=== PATIENT | female | born 1960 | race Caucasian/White ===

== ENCOUNTER 2019-12-11 03:56 | Inpatient (IN) | payer BC, OTHER ==
[2019-12-11 04:09] VITALS: BMI 21.3
--- NOTE | 2019-12-11 04:18 | PDOC ---
Attending Attestation - Resident Resident Name: Regino Abrams - ED Attending Attestation I have performed the following: I have examined & evaluated the patient, The case was reviewed & discussed with the resident, I agree w/resident's findings & plan - HPI HPI: 12/11/19 05:50 see resident hpi - Physicial Exam PE: 12/11/19 05:50 see resident exam - Medical Decision Making 12/11/19 05:50 59-year-old female with epigastric pain nausea and vomiting Plan for labs including lipase and troponin EKG does show some T wave inversions in anterior leads Pending results plan for observation for further evaluation
[2019-12-11] MEDS ORDERED: SODIUM CHLORIDE 0.9% 500 ML INFUS.BAG IV ONE (04:41)
[2019-12-11] MEDS ORDERED: ACETAMINOPHEN 1000 MG/100 ML VIAL (NON FORMULARY) IVPB ONE (04:41)
--- NOTE | 2019-12-11 04:46 | PDOC ---
History of Present Illness - General Chief Complaint: Weakness Stated Complaint: FEVER,DIZZINESS,NAUSEA,WEAKNESS Time Seen by Provider: 12/11/19 04:14 History Source: Patient - History of Present Illness Initial Comments: 59F PMH HTN HLD c/o dizziness (room spinning, starting around midnight) in setting of F/N/V and poor PO intake x 3 days. Has only been able to tolerate small amounts of yogurt w/ daily meds. Denies sick contacts; recent abx. Last BM tuesday; has been passing flatus. Denies cp/sob. +travel to 2 weeks ago, no sick contacts there or illnesses during or immediately after trip. PCP - Dr. Espinoza Past History - Past Medical History Allergies/Adverse Reactions: Allergies Allergy/AdvReac Type Severity Reaction Status Date / Time No Known Drug Allergies Allergy Verified 12/11/19 04:03 Home Medications: Ambulatory Orders Atenolol [Tenormin -] 50 mg PO DAILY 03/26/15 Amlodipine Besylate [Norvasc -] 10 mg PO DAILY 03/27/15 Simvastatin [Zocor -] 20 mg PO DAILY 03/27/15 Meclizine HCl 25 mg PO Q8H #30 tablet 12/11/19 Pantoprazole Sodium [Protonix] 40 mg PO DAILY #14 tablet. 12/11/19 Anemia: Yes Asthma: No Cancer: No Cardiac Disorders: No CVA: No COPD: No CHF: No Dementia: No Diabetes: No GI Disorders: No Disorders: No HTN: Yes Hypercholesterolemia: Yes Liver Disease: No Seizures: No Thyroid Disease: No - Surgical History Abdominal Surgery: Yes (TUMMY TUCK) Appendectomy: Yes Cardiac Surgery: No Cholecystectomy: No Lung Surgery: No Neurologic Surgery: No Orthopedic Surgery: No - Psycho Social/Smoking Cessation Hx Smoking History: Never smoked Have you smoked in the past 12 months: Yes Number of Cigarettes Smoked Daily: 2 'Breaking Loose' booklet given: 03/27/15 Hx Alcohol Use: No Drug/Substance Use Hx: No Substance Use Type: None Hx Substance Use Treatment: No Review of Systems - Review of Systems Able to Perform ROS?: Yes Comments:: CONSTITUTIONAL: endorses subjective fevers HEENT: endorses dizziness. Denies changes in vision / hearing RESP: Denies SOB, cough, orthopnea, NUNEZ CARD: Denies chest pain, palpitations GI: endorses n/v/d, po intolerance. : Denies dysuria SKIN: Denies rashes NEURO: Denies numbness, tingling, focal weakness MSK: Denies back pain *Physical Exam - Vital Signs Last Vital Signs Temp Pulse Resp BP Pulse Ox 99.5 F 74 18 114/72 98 12/11/19 04:04 12/11/19 04:04 12/11/19 04:04 12/11/19 04:04 12/11/19 04:04 - Physical Exam GEN: uncomfortable; AAOx3. HEENT: NC/AT, CN II-XII intact, EOMI, PERRL. No facial asymmetry. Moist mucous membranes. Normal voice. Supple neck w/ FROM. CV: S1/S2, RRR, no m/r/g LUNG: CTAB, no wheezes, crackles, rales, rhonchi. GI: mild ttp epigastrium; soft, nondistended, otherwise nontender, +BS, no guarding, no rebound. No masses. MSK: No obvious deformities of all extremities. SKIN: Warm, dry, no rashes appreciated. PSYCH: Normal mood and affect. NEURO: Moving all extremities well. 5/5 UE LE strength b/l. symmetric sensation. rhomberg neg. no pronator drift. no ataxia on FTN. Heart Score/ECG Review - History History: Slightly suspicious - Electrocardiogram EKG: Non specific repolarization disturbance - Age Age: 45-65 - Risk Factors Risk Factors Heart Score: Yes Hx Hypercholesterolemia, Yes Hx Hypertension Based on the list above the patient has:: 1-2 risk factors - Troponin Troponin: </= normal limit - Score Heart Score - Total: 3 ED Treatment Course - LABORATORY CBC & Chemistry Diagram: 12/11/19 04:50 12/11/19 04:50 Medical Decision Making - Medical Decision Making 12/11/19 04:56 59F c/o dizziness in setting of F/N/V, poor PO intake. Mild midepigastric pain o /w unremarkable exam. - CBC, CMP, Cardiac - EKG - CXR - Zofran, Pepcid, Fluids EKG 0449 HR 64 IA 164 QRS 86 QTc 416 NSR; TWI V2-V4; normal axis. No prior EKGs in system to compare. 12/11/19 06:00 labs reviewed reassuring pt improving and resting comfortably teleobs 12/11/19 06:11 HEART = 3 Endorsed Admitted Discharge - Discharge Information Problems reviewed: Yes Clinical Impression/Diagnosis: Epigastric abdominal pain, Abnormal EKG Condition: Stable - Follow up/Referral - Patient Discharge Instructions - Post Discharge Activity
[2019-12-11] MEDS ORDERED: FAMOTIDINE 20 MG/50 ML IVPB 20 MG/50 ML MG IVPB ONE ×2 (05:00→05:06)
[2019-12-11] MEDS ORDERED: ONDANSETRON 4 MG/2 ML VIAL IVPUSH ONE (05:00)
[2019-12-11] MEDS ORDERED: ACETAMINOPHEN INJECTION 100 ML IVPB ONE (05:05)
[2019-12-11] MEDS ORDERED: ONDANSETRON 4 MG/2 ML VIAL ONE (05:06)
[2019-12-11 05:11] LABS: BASO % 0.5 % (0-2.0); EOS % 0.1 % (0-4.5); HEMOGLOBIN 13.6 GM/dL (10.7-15.3); LYMPH % 14.7 % (8-40); MCH 27.4 pg (25.7-33.7); MEAN CELL VOLUME 80.5 fl (80-96); MEAN PLT VOLUME 9.6 fl (7.5-11.1); MONO % 26.6 % (3.8-10.2); NEUT % 58.1 % (42.8-82.8); PLATELET COUNT 165 K/MM3 (134-434); RBC 4.97 M/mm3 (3.60-5.2); RDW 14.4 % (11.6-15.6); WHITE BLOOD COUNT 5.5 K/mm3 (4.0-10.0)
[2019-12-11 05:54] LABS: ALBUMIN 3.9 g/dl (3.4-5.0); ALK PHOS 104 U/L (45-117); ANION GAP 7 MMOL/L (8-16); BILIRUBIN,TOTAL 0.2 mg/dL (0.2-1); BLOOD UREA NITROGEN 12.5 mg/dL (7-18); CALCIUM 8.9 mg/dL (8.5-10.1); CHLORIDE 103 mmol/L (98-107); CO2 26 mmol/L (21-32); CREATININE 0.7 mg/dL (0.55-1.3); GLUCOSE,RANDOM 113 mg/dL (74-106); POTASSIUM 4.2 mmol/L (3.5-5.1); SGOT/AST 27 U/L (15-37); SGPT/ALT 32 U/L (13-61); SODIUM 136 mmol/L (136-145); TOT PROT 8.3 g/dl (6.4-8.2)
[2019-12-11 06:38] LABS: ANISOCYTOSIS 0; HELMET CELLS 0; HOWELL-JOLLY BODIES 0; MACROCYTOSIS 0; OVALOCYTE 0; PLATELET ESTIMATE NORMAL; ROULEAU 0; SICKELED CELLS 0; TARGET CELLS 0; TEAR DROP CELLS 0; TOXIC GRANULATION 0
[2019-12-11] MEDS ORDERED: MECLIZINE HCL 25 MG TABLET (FP) PO PRN (07:50)
[2019-12-11] MEDS ORDERED: SODIUM CHLORIDE 1,000 ML IV SCH (08:00)
[2019-12-11] MEDS ORDERED: ACETAMINOPHEN 325 MG TABLET (FP) PO PRN (08:12)
--- NOTE | 2019-12-11 08:14 | HP ---
CHIEF COMPLAINT:RUQ/epigastric pain PCP:Dr. Espinoza HISTORY OF PRESENT ILLNESS: Patient is a 59 year old female with past medical history of HTN, HLD, retroperitoneal/RUQ mass (s/p excision, reportedly benign tumor), presented to the ED due to worsening epigastric/RUQ pain for 2 days. Patient reported pain started to 2 days ago, described as sharp, constant, RUQ/epigastric area, not related to food, with no aggravating or alleviating symptoms. Yesterday, pain started worsening and patient did not have any appetite. This was accompanied by subjective fevers, also reports dizziness described as room spinning around her. Early this morning, the abdominal pain became so severe 10/10 that patient experienced nausea and 3 episodes of NBNB vomiting. She denies any headache, chest pain, SOB, diarrhea, constipation, urinary symptoms. ER course was notable for: (1)Trop neg x1 (2) (3) Recent Travel:denies PAST MEDICAL HISTORY: HTN HLD retroperitoneal/RUQ mass, reportedly benign tumor PAST SURGICAL HISTORY: Ex-lap for retroperitoneal mass (2016) Appendectomy C-sections x3 Family History Mother - DM Social History: Smoking:denies Alcohol:denies Drugs: denies Allergies No Known Drug Allergies Allergy (Verified 12/11/19 04:03) HOME MEDICATIONS: Home Medications Medication Instructions Recorded Atenolol [Tenormin -] 50 mg PO DAILY 03/26/15 Amlodipine Besylate [Norvasc -] 10 mg PO DAILY 03/27/15 Simvastatin [Zocor -] 20 mg PO DAILY 03/27/15 REVIEW OF SYSTEMS CONSTITUTIONAL: Absent: fever, chills, diaphoresis, generalized weakness, malaise, loss of appetite, weight change HEENT: Absent: rhinorrhea, nasal congestion, throat pain, throat swelling, difficulty swallowing, mouth swelling, ear pain, eye pain, visual changes CARDIOVASCULAR: Absent: chest pain, syncope, palpitations, irregular heart rate, lightheadedness , peripheral edema RESPIRATORY: Absent: cough, shortness of breath, dyspnea with exertion, orthopnea, wheezing, stridor, hemoptysis GASTROINTESTINAL: abdominal pain, nausea, vomiting Absent:abdominal distension,diarrhea, constipation, melena, hematochezia GENITOURINARY: Absent: dysuria, frequency, urgency, hesitancy, hematuria, flank pain, genital pain MUSCULOSKELETAL: Absent: myalgia, arthralgia, joint swelling, back pain, neck pain SKIN: Absent: rash, itching, pallor HEMATOLOGIC/IMMUNOLOGIC: Absent: easy bleeding, easy bruising, lymphadenopathy, frequent infections ENDOCRINE: Absent: unexplained weight gain, unexplained weight loss, heat intolerance, cold intolerance NEUROLOGIC: Absent: headache, focal weakness or paresthesias, dizziness, unsteady gait, seizure, mental status changes, bladder or bowel incontinence PSYCHIATRIC: Absent: anxiety, depression, suicidal or homicidal ideation, hallucinations. PHYSICAL EXAMINATION Vital Signs - 24 hr 12/11/19 12/11/19 12/11/19 04:04 04:50 06:23 Temperature 99.5 F Pulse Rate 74 74 Pulse Rate [ 61 Right Radial] Respiratory 18 18 Rate Blood Pressure 114/72 Blood Pressure 122/74 [Right Arm] O2 Sat by Pulse 98 98 98 Oximetry (%) GENERAL: Awake, alert, and fully oriented, in no acute distress. HEAD: Normal with no signs of trauma. EYES: PERRLA, EOMI, sclera anicteric, conjunctiva clear. EARS, NOSE, THROAT: Dry mucous membranes. NECK: Normal range of motion, supple. LUNGS: Breath sounds equal, clear to auscultation bilaterally. HEART: Regular rate and rhythm, normal S1 and S2 without murmur, rub or gallop. ABDOMEN: Soft, +RUQ/epigastric tenderness, not distended, normoactive bowel sounds, no guarding. MUSCULOSKELETAL: Normal range of motion at all joints. LOWER EXTREMITIES: 2+ pulses, warm, well-perfused. No peripheral edema. NEUROLOGICAL: Cranial nerves II-XII grossly intact. Normal speech. Normal gait. PSYCHIATRIC: Cooperative. Good eye contact. Appropriate mood and affect. SKIN: Warm, dry, normal turgor. Laboratory Results - last 24 hr 12/11/19 12/11/19 04:50 04:50 WBC 5.5 RBC 4.97 Hgb 13.6 Hct 40.0 MCV 80.5 MCH 27.4 MCHC 34.0 RDW 14.4 Plt Count 165 MPV 9.6 Absolute Neuts (auto) 3.2 Neutrophils % 58.1 Neutrophils % (Manual) 56.0 Band Neutrophils % 4.0 Lymphocytes % 14.7 Lymphocytes % (Manual) 19.0 Monocytes % 26.6 H Monocytes % (Manual) 16 H Eosinophils % 0.1 Eosinophils % (Manual) 0.0 Basophils % 0.5 Basophils % (Manual) 0.0 Myelocytes % (Man) 3 H Promyelocytes % (Man) 0 Blast Cells % (Manual) 0 Nucleated RBC % 0 Metamyelocytes 0 Hypochromia 0 Toxic Granulation 0 Dohle Bodies 0 Platelet Estimate Normal Polychromasia 0 Poikilocytosis 0 Basophilic Stippling 0 Anisocytosis 0 Microcytosis 0 Macrocytosis 0 Spherocytes 0 Sickle Cells 0 Target Cells 0 Tear Drop Cells 0 Ovalocytes 0 Stomatocytes 0 Helmet Cells 0 [place] Bodies 0 [place] Rings 0 Douglas Cells 0 Acanthocytes (Spur) 0 Rouleaux 0 Fragmented RBCs 0 Schistocytes 0 Sodium 136 Potassium 4.2 Chloride 103 Carbon Dioxide 26 Anion Gap 7 L BUN 12.5 Creatinine 0.7 Est GFR (CKD-EPI)AfAm 111.47 Est GFR (CKD-EPI)NonAf 96.18 Random Glucose 113 H Calcium 8.9 Total Bilirubin 0.2 AST 27 ALT 32 Alkaline Phosphatase 104 Creatine Kinase 108 Troponin I < 0.02 Total Protein 8.3 H Albumin 3.9 ASSESSMENT/PLAN: Patient is a 59 year old female with past medical history of HTN, HLD, retroperitoneal/RUQ mass (s/p excision, reportedly benign tumor), presented to the ED due to worsening epigastric/RUQ pain for 2 days. #Abdominal pain -may be 2/2 cholelithiasis/cholecystitis, pancreatitis, gastritis -EKG showed TWI in V2-V4, no previous EKGs available for comparison, will rule out ACS -RUQ ultrasound ordered -will trend trop -echo #HTN -continue amlodipine, atenolol #HLD -Continue simvastatin #FEN -Not on any standing fluids -Electrolytes wnl, routine bmp monitoring -sodium restricted diet #Prophylaxis -Lovenox 40mg daily #Disposition -full code -tele obs Visit type - Emergency Visit Emergency Visit: Yes ED Registration Date: 12/11/19 Care time: The patient presented to the Emergency Department on the above date and was hospitalized for further evaluation of their emergent condition. - New Patient This patient is new to me today: Yes Date on this admission: 12/11/19 - Critical Care Critical Care patient: No ATTENDING PHYSICIAN STATEMENT I saw and evaluated the patient. I reviewed the resident's note and discussed the case with the resident. I agree with the resident's findings and plan as documented. SUBJECTIVE: OBJECTIVE: ASSESSMENT AND PLAN:
--- NOTE | 2019-12-11 08:33 | PN ---
Teaching Attending Note Name of Resident: Qing Sánchez ATTENDING PHYSICIAN STATEMENT I saw and evaluated the patient. I reviewed the resident's note and discussed the case with the resident. I agree with the resident's findings and plan as documented. SUBJECTIVE: This is a 59 year old woman with a history of HTN, hyperlipidemia, resection of RUQ mass who comes to the ED complaining of RUQ abdominal pain x 2 days. The pain is sharp and constant, and is not related to meals. The pain worsened yesterday and she thinks she had fevers. This morning, she had nausea and vomiting. OBJECTIVE: Vital Signs Period Temp Pulse Resp BP Sys/Vill[place] Pulse Ox Last 24 Hr 99.5 F 61-74 18-18 114-122/72-74 98-98 HEART: S1S2, RRR LUNGS: Clear ABDOMEN: Soft, non-distended, (+) epigastric/RUQ tenderness, normal BS EXTREMITIES: No edema Laboratory Tests 12/11/19 12/11/19 04:50 04:50 WBC 5.5 RBC 4.97 Hgb 13.6 Hct 40.0 MCV 80.5 MCH 27.4 MCHC 34.0 RDW 14.4 Plt Count 165 MPV 9.6 Absolute Neuts (auto) 3.2 Neutrophils % 58.1 Neutrophils % (Manual) 56.0 Band Neutrophils % 4.0 Lymphocytes % 14.7 Lymphocytes % (Manual) 19.0 Monocytes % 26.6 H Monocytes % (Manual) 16 H Eosinophils % 0.1 Eosinophils % (Manual) 0.0 Basophils % 0.5 Basophils % (Manual) 0.0 Myelocytes % (Man) 3 H Promyelocytes % (Man) 0 Blast Cells % (Manual) 0 Nucleated RBC % 0 Metamyelocytes 0 Hypochromia 0 Toxic Granulation 0 Dohle Bodies 0 Platelet Estimate Normal Polychromasia 0 Poikilocytosis 0 Basophilic Stippling 0 Anisocytosis 0 Microcytosis 0 Macrocytosis 0 Spherocytes 0 Sickle Cells 0 Target Cells 0 Tear Drop Cells 0 Ovalocytes 0 Stomatocytes 0 Helmet Cells 0 [place] Bodies 0 [place] Rings 0 [place] Cells 0 Acanthocytes (Spur) 0 Rouleaux 0 Fragmented RBCs 0 Schistocytes 0 Sodium 136 Potassium 4.2 Chloride 103 Carbon Dioxide 26 Anion Gap 7 L BUN 12.5 Creatinine 0.7 Est GFR (CKD-EPI)AfAm 111.47 Est GFR (CKD-EPI)NonAf 96.18 Random Glucose 113 H Calcium 8.9 Total Bilirubin 0.2 AST 27 ALT 32 Alkaline Phosphatase 104 Creatine Kinase 108 Troponin I < 0.02 Total Protein 8.3 H Albumin 3.9 Home Medications Medication Instructions Recorded Atenolol [Tenormin -] 50 mg PO DAILY 03/26/15 Amlodipine Besylate [Norvasc -] 10 mg PO DAILY 03/27/15 Simvastatin [Zocor -] 20 mg PO DAILY 03/27/15 ASSESSMENT AND PLAN: This is a 59 year old woman with a history of HTN, hyperlipidemia, resection of RUQ mass who presented to the ED with RUQ abdominal pain. 1. RUQ/epigastric abdominal pain - EKG shows T wave changes - Monitor on telemetry - Serial troponins - RUQ US - Pepcid IV 2. HTN - Continue Norvasc, atenolol 3. Hyperlipidemia - Continue Zocor
--- NOTE | 2019-12-11 09:17 | EKG ---
Test Reason : Blood Pressure : / mmHG Vent. Rate : 064 BPM Atrial Rate : 064 BPM P-R Int : 164 ms QRS Dur : 086 ms QT Int : 404 ms P-R-T Axes : 057 058 051 degrees QTc Int : 416 ms NORMAL SINUS RHYTHM T WAVE ABNORMALITY, CONSIDER ANTERIOR ISCHEMIA ABNORMAL ECG WHEN COMPARED WITH ECG OF 26-JUL-2013 11:01, T WAVE INVERSION MORE EVIDENT IN ANTERIOR LEADS Confirmed by Adam Camacho MD ([id number]) on 12/11/2019 9:16:45 AM Referred By: Confirmed By:Adam Camacho MD
[2019-12-11] MEDS ORDERED: ENOXAPARIN NA (PORCINE) 40 MG/0.4 ML DISP.SYRIN SQ SCH (10:00)
[2019-12-11] MEDS ORDERED: amLODIPine BESYLATE 10 MG TABLET (FP) PO SCH (10:00)
[2019-12-11] MEDS ORDERED: ATENOLOL 50 MG TABLET (FP) PO SCH (10:00)
--- NOTE | 2019-12-11 11:22 | ECHO ---
Name: NAE PEREIRA Exam:Adult Echocardiogram Study Date: 12/11/2019 10:36 AM Age: 59 yrs Reason For Study: r/o ACS Height: 66 in Weight: 160 lb BSA: 1.8 m2 MMode/2D Measurements & Calculations IVSd: 0.94 cm Ao root diam: 3.3 cm LVIDd: 5.0 cm LA dimension: 3.6 cm LVIDs: 3.2 cm ACS: 1.5 cm LVPWd: 0.96 cm EDV(Teich): 116.2 ml LVOT diam: 2.0 cm ESV(Teich): 42.2 ml LAV (MOD-bp): 65.0 ml TAPSE: 2.3 cm RV S Sergo: 14.2 cm/sec Doppler Measurements & Calculations MV E max sergo: 72.1 cm/sec Ao V2 max: 148.0 cm/sec MV A max sergo: 45.4 cm/sec Ao max P.8 mmHg MV E/A: 1.6 Ao V2 mean: 91.1 cm/sec MV dec time: 0.24 sec Ao mean P.9 mmHg Ao V2 VTI: 28.5 cm AIDEE(I,D): 2.8 cm2 AIDEE(V,D): 2.5 cm2 LV V1 max P.2 mmHg SV(LVOT): 80.0 ml LV V1 mean P.4 mmHg LV V1 max: 114.0 cm/sec LV V1 mean: 72.0 cm/sec LV V1 VTI: 24.9 cm TR max sergo: 210.4 cm/sec PA V2 max: 103.2 cm/sec TR max P.0 mmHg PA max P.3 mmHg PI end-d sergo: 84.2 cm/sec Med Peak E' Sergo: 7.3 cm/sec Med E/e': 9.9 Lat Peak E' Sergo: 11.5 cm/sec Lat E/e': 6.3 Pulm Sys Sergo: 58.7 cm/sec Pulm Villagomez Sergo: 48.9 cm/sec Pulm S/D: 1.2 Procedure A complete two-dimensional transthoracic echocardiogram was performed (2D, M-mode, Doppler and color flow Doppler). Left Ventricle The left ventricular size, thickness and function are normal. The left ventricular ejection fraction is normal. Ejection Fraction = 65%. E/A reversal consistent with but not diagnostic of poor LV complianc e. The left ventricular wall motion is normal. Right Ventricle The right ventricle is normal in size and function. Atria Normal left and right atrial size and function. Mitral Valve The mitral valve is normal in structure and function. There is trace mitral regurgitation. Tricuspid Valve The tricuspid valve is normal in structure and function. There is Trace to mild tricuspid regurgitati on. Right ventricular systolic pressure is 23 mmhg. Assuming the RA pressure is 5 mmHg. Aortic Valve The aortic valve is normal in structure and function. Trace to mild aortic regurgitation. Pulmonic Valve The pulmonic valve is normal in structure and function. Trace pulmonic valvular regurgitation. Great Vessels The aortic root is normal size. Pericardium/Pleura There is no pericardial effusion. There is no pleural effusion. Interpretation Summary The left ventricular size, thickness and function are normal Ejection Fraction = 65%. There is trace mitral regurgitation. There is Trace to mild tricuspid regurgitation. Trace to mild aortic regurgitation. Trace pulmonic valvular regurgitation. MD Aadm Camacho 12/11/2019 11:22 AM
[2019-12-11] MEDS ORDERED: MECLIZINE HCL 25 MG TABLET (FP) ONE (12:34)
[2019-12-11 12:42] LABS: LIPASE 99 U/L (73-393)
[2019-12-11 14:33] VITALS: BP 107/58; PULSE 60; TEMP 99.2
--- NOTE | 2019-12-11 15:00 | DS ---
Physical Exam: SUBJECTIVE: Patient seen and examined. Reports improvement of abdominal pain. OBJECTIVE: Vital Signs Temperature 99.2 F 12/11/19 14:32 Pulse Rate 60 12/11/19 14:32 Respiratory Rate 20 12/11/19 14:32 Blood Pressure 107/58 L 12/11/19 14:32 O2 Sat by Pulse Oximetry (%) 98 12/11/19 14:32 PHYSICAL EXAM GENERAL: The patient is awake, alert, and fully oriented, in no acute distress. HEAD: Normal with no signs of trauma. EYES: PERRLA, EOMI, sclera anicteric, conjunctiva clear. ENT: moist mucous membranes. NECK: Trachea midline, full range of motion, supple. LUNGS: Breath sounds equal, clear to auscultation bilaterally. HEART: Regular rate and rhythm, S1, S2 without murmur, rub or gallop. ABDOMEN: Soft, nontender, nondistended, normoactive bowel sounds. EXTREMITIES: 2+ pulses, warm, well-perfused, no edema. NEUROLOGICAL: Cranial nerves II through XII grossly intact. Normal speech. PSYCH: Normal mood, normal affect. SKIN: Warm, dry, normal turgor. LABS Laboratory Results - last 24 hr 12/11/19 12/11/19 12/11/19 04:50 04:50 11:45 WBC 5.5 RBC 4.97 Hgb 13.6 Hct 40.0 MCV 80.5 MCH 27.4 MCHC 34.0 RDW 14.4 Plt Count 165 MPV 9.6 Absolute Neuts (auto) 3.2 Neutrophils % 58.1 Neutrophils % (Manual) 56.0 Band Neutrophils % 4.0 Lymphocytes % 14.7 Lymphocytes % (Manual) 19.0 Monocytes % 26.6 H Monocytes % (Manual) 16 H Eosinophils % 0.1 Eosinophils % (Manual) 0.0 Basophils % 0.5 Basophils % (Manual) 0.0 Myelocytes % (Man) 3 H Promyelocytes % (Man) 0 Blast Cells % (Manual) 0 Nucleated RBC % 0 Metamyelocytes 0 Hypochromia 0 Toxic Granulation 0 Dohle Bodies 0 Platelet Estimate Normal Polychromasia 0 Poikilocytosis 0 Basophilic Stippling 0 Anisocytosis 0 Microcytosis 0 Macrocytosis 0 Spherocytes 0 Sickle Cells 0 Target Cells 0 Tear Drop Cells 0 Ovalocytes 0 Stomatocytes 0 Helmet Cells 0 [place] Bodies 0 [place] Rings 0 [place] Cells 0 Acanthocytes (Spur) 0 Rouleaux 0 Fragmented RBCs 0 Schistocytes 0 Sodium 136 Potassium 4.2 Chloride 103 Carbon Dioxide 26 Anion Gap 7 L BUN 12.5 Creatinine 0.7 Est GFR (CKD-EPI)AfAm 111.47 Est GFR (CKD-EPI)NonAf 96.18 Random Glucose 113 H Calcium 8.9 Total Bilirubin 0.2 AST 27 ALT 32 Alkaline Phosphatase 104 Creatine Kinase 108 Troponin I < 0.02 < 0.02 Total Protein 8.3 H Albumin 3.9 Lipase 99 HOSPITAL COURSE: Date of Admission:12/11/19 Date of Discharge: 12/11/19 Patient is a 59 year old female with past medical history of HTN, HLD, retroperitoneal/RUQ mass (s/p excision, reportedly benign tumor), presented to the ED due to worsening epigastric/RUQ pain for 2 days. Patient was given Famotidine which provided relief of abdominal pain, and meclizine for dizziness. Troponins was negative x2, echo done and RUQ US done which were unremarkable. Patient was discharged with instructions to follow up with Primary care doctor. Minutes to complete discharge: 35 Discharge Summary Problems reviewed: Yes Reason For Visit: T WAVE INVERSION ON ELECTROCARDIOGRAPHY Condition: Improved - Instructions Diet, Activity, Other Instructions: Your visit You were admitted to the hospital because you had belly pain and dizziness. Several tests were done to check your heart and your belly, which were unremarkable. You were given a medication, called Meclizine to help with your dizziness. Your belly pain is possibly caused by heartburn. Please take the medication, Protonix, for your belly pain for 2 weeks. Medications You may take Meclizine 25mg every 8 hours as needed for dizziness. Please take note that this medication may cause drowsiness. Please do not drive or use heavy machinery until you know how this drug affects you. Please take Protonix 40mg once a day for 2 weeks. Continue your home medications. Follow ups -Please follow up with your primary care doctor within 1 week. Additional info Please call 911 or go to the ED if with any worsening fever,chills, headache, dizziness, chest pain, shortness of breath, abdominal pain, or any new concerns noted. Referrals: Bao Scott MD [Primary Care Provider] - Disposition: HOME - Home Medications Comprehensive Discharge Medication List: Ambulatory Orders Atenolol [Tenormin -] 50 mg PO DAILY 03/26/15 Amlodipine Besylate [Norvasc -] 10 mg PO DAILY 03/27/15 Simvastatin [Zocor -] 20 mg PO DAILY 03/27/15 Meclizine HCl 25 mg PO Q8H #30 tablet 12/11/19 Pantoprazole Sodium [Protonix] 40 mg PO DAILY #14 tablet. 12/11/19 This patient is new to me today: Yes Date on this admission: 12/11/19 Emergency Visit: Yes ED Registration Date: 12/11/19 Care time: The patient presented to the Emergency Department on the above date and was hospitalized for further evaluation of their emergent condition. Critical Care patient: No - Discharge Referral Referred to [facility] No ATTENDING PHYSICIAN STATEMENT I saw and evaluated the patient. I reviewed the resident's note and discussed the case with the resident. I agree with the resident's findings and plan as documented. SUBJECTIVE: OBJECTIVE: ASSESSMENT AND PLAN:
[2019-12-11] MEDS ORDERED: ATORVASTATIN CA 10 MG TABLET (FP) PO SCH (22:00)
== END 2019-12-11 05:57 | disposition home or self-care (01) | DRG 392 ==
LOC: JER 03:56 → JERBED 05:57
PROVIDERS: ADMIT Internal Medicine; ATTEND Internal Medicine
DX: R10.11 Right upper quadrant pain (principal); R19.09 Other intra-abdominal and pelvic swelling, mass and lump; R11.2 Nausea with vomiting, unspecified; R50.9 Fever, unspecified; R42 Dizziness and giddiness; D64.9 Anemia, unspecified; E78.00 Pure hypercholesterolemia, unspecified; I10 Essential (primary) hypertension
CPT/HCPCS: 36415; 71045-TC-FY; 76705-TC; 80053; 82550; 83690; 84484; 85025; 93005; 93010; 93306-TC; 99285-25; J0131; J7030